=== PATIENT | female | born 1980 | race Caucasian/White ===

== ENCOUNTER 2017-02-20 08:13 | Day surgery (SDC) | payer BC, SELFPAY ==
[2017-02-20] MEDS ORDERED: Lactated Ringers 1,000 ML IV SCH (08:15)
[2017-02-20] MEDS ORDERED: cefOXitin 2 GM in Sodium Chloride 0.9% 100 ML IV ONE ×5 (09:00→09:30)
[2017-02-20] MEDS ORDERED: Succinylcholine/Normal Saline 200 MG/10 ML Syringe IV ONE (10:00)
[2017-02-20] MEDS ORDERED: Midazolam 1 MG/ML 2 ML SDV IV ONE (10:00)
[2017-02-20] MEDS ORDERED: Propofol 200 MG/20 ML SDV IV ONE (10:00)
[2017-02-20] MEDS ORDERED: Dexamethasone 4 MG/ML 5 ML MDV IVPUSH ONE (10:00)
[2017-02-20] MEDS ORDERED: Ondansetron 4 MG/2 ML SDV IVPUSH ONE (10:00)
[2017-02-20] MEDS ORDERED: Rocuronium 50 MG/5 ML Vial IV ONE (10:00)
[2017-02-20] MEDS ORDERED: fentaNYL 100 MCG/2 ML SDV IV ONE (10:00)
[2017-02-20] MEDS ORDERED: Ketorolac 30 MG/ML SDV IVPUSH ONE (10:00)
[2017-02-20] MEDS ORDERED: Lidocaine 1% with EPINEPHrine 1:100,000 20 ML MDV INJECT ONE (10:10)
[2017-02-20] MEDS ORDERED: Bupivacaine 0.5% 30 ML SDV INJECT ONE (10:10)
--- NOTE | 2017-02-20 10:45 | PCM.OPNOTE ---
- General Post-Op/Procedure Note Date of Surgery/Procedure: 02/20/17 Operative Procedure(s): excision of pilonidal cyst with marsupialization Findings: pilonidal cyst Pre Op Diagnosis: pilonidal cyst Post-Op Diagnosis: Same Anesthesia Technique: General ET tube, Local (8 ml 1 % lido with epi) Primary Surgeon: Gurjit Rodriguez Anesthesia Provider: Avelino Jasmine Pathology: pilonidal cyst Complications: None Condition: Good Free Text/Narrative:: see dictation
[2017-02-20 12:51] VITALS: BP 139/91
--- NOTE | 2017-02-20 16:26 | OR ---
DATE OF OPERATION: 02/20/2017 SURGEON: Gurjit Rodriguez MD PROCEDURE PERFORMED: Excision and marsupialization of pilonidal cyst. PREOPERATIVE DIAGNOSIS: History of pilonidal cyst with abscess. POSTOPERATIVE DIAGNOSIS: Pilonidal cyst. INDICATIONS FOR PROCEDURE: This is a 36-year-old, white female, who was referred with a history of multiple pilonidal cyst with abscess. This had required incision and drainage. She was referred for excision. She was offered and accepted excision of this lesion. DESCRIPTION OF OPERATION: After an excellent general anesthetic was administered, the patient was placed in the prone position. An 8 mL of 1:1 mixture of 1% lidocaine with epinephrine and 0.5% bupivacaine was used to infiltrate around the lesion. An elliptical incision was made around the previous I and D site as well as two sinuses. Electrocautery was used to dissect the lesion free from the surrounding tissue. The specimen was then passed off the field. The wound was then marsupialized with a running #2 nylon and interrupted 0-Ethibond to get a good adherence of the cyst to the underlying tissue. The wound was then packed with Aquacel Ag and then plain Aquacel and a DuoDERM. The patient was taken to recovery room in good condition. /[id number] /REINAL
== END 2017-02-20 12:40 | disposition home or self-care (01) ==
LOC: FB.SDS 08:13
PROVIDERS: ATTEND Surgery
DX: L05.01 Pilonidal cyst with abscess (principal); Z79.899 Other long term (current) drug therapy; Z90.49 Acquired absence of other specified parts of digestive tract; F17.210 Nicotine dependence, cigarettes, uncomplicated
CPT/HCPCS: 11771; 81025; J0694; J7030; J7120; 88304; J1100; J1885; J2250; J2405; J2704; J3010